=== PATIENT | male | born 1965 | race Caucasian/White ===

== ENCOUNTER → 2016-09-14 | Day surgery (SDC) | payer BC ==
[~2016-09-14] MED LIST: AMLO5TAB96 PO; CYCL-36 PO; ENAL20TA81 PO; IBUP-232 PO; LACTATED RINGER'S 1000 ML INJ 1,000 ML ONE; LOVA1TAB47 PO; PROPOFOL 500 MG/50 ML BTL IV ONE
--- NOTE | 2016-09-14 07:55 | GIPROC ---
[facility] [address] [place], [address] EGD PROCEDURE REPORT EXAM DATE: 09/14/2016 PATIENT NAME: Caesar Shaffer MR #: [id number] BIRTHDATE: 1965 ATTENDING: You Aparicio MD ORDER #: [id number] [employer] CONTRACT CLERK: none STATUS: outpatient INDICATIONS: The patient is a 50 yr old male here for an EGD due to heartburn PROCEDURE PERFORMED: EGD w/ biopsy MEDICATIONS: None and Per Anesthesia. TOPICAL ANESTHETIC: none CONSENT: The patient understands the risks and benefits of the procedure and understands that these risks include, but are not limited to: sedation, allergic reaction, infection, perforation and/or bleeding. Alternative means of evaluation and treatment include, among others: physical exam, x-rays, and/or surgical intervention. The patient elects to proceed with this endoscopic procedure. medical equipment was checked for proper function. Hand hygiene and appropriate measures for infection prevention was taken. After the risks, benefits and alternatives of the procedure were thoroughly explained, Informed consent was verified, confirmed and timeout was successfully executed by the treatment team. The patient was anesthetized with anesthesia and the EC-[id number] ([id number]) endoscope was introduced through the mouth and advanced to the second portion of the duodenum. Findings of gastritis. Proment rugal fold at pylorus. Biopsy for h. pylori and biopsy of pyloric fold done. Retroflexed views revealed no abnormalities The gastroscope was then slowly withdrawn and removed. STOMACH: There was moderate gastritis in the gastric antrum. ADVERSE EVENTS: There were no complications. IMPRESSIONS: 1. There was gastritis in the gastric antrum 2. Retroflexed views revealed no abnormalities RECOMMENDATIONS: 1. Continue PPI 2. Await biopsy results. Biopsy results will not be ready for 7-10 days. If you don't hear from us in two weeks, call our office for biopsy results. PATIENT CONDITION: fair DISPOSITION: Home REPEAT EXAM: NONE You Aparicio MD eSigned: You Aparicio MD 09/14/2016 7:55 AM cc: Gustavo Garcia M.D.
== END | disposition home or self-care (01) ==
LOC: ESDC 06:26
PROVIDERS: ATTEND Surgery
DX: R12 Heartburn (principal); K29.50 Unspecified chronic gastritis without bleeding
CPT/HCPCS: 00740; 43239; 88305; 88312; J3010; J7120